=== PATIENT | male | born 1965 | race Caucasian/White ===

== ENCOUNTER 2023-06-07 18:43 | Emergency (ER) | payer BC ==
[~2023-06-07] VITALS: Ht 177.8 cm; Wt 98.9 kg
[~2023-06-07 18:43] MED LIST: BENA-6 PO; ESOM40CA PO
[2023-06-07 19:08] VITALS: BP_SYST 136; PULSE 63; RESP 16; TEMP 95; O2SAT 95
[2023-06-07] MEDS ORDERED: BACITRACIN 1 GM OINT TP ONE (20:45)
[2023-06-07 21:07] LABS: BASOPHILS % (AUTO) 0.4 % (0.0-2.0); EOSINOPHILS # (AUTO) 0.4 K/uL (0.0-0.4); EOSINOPHILS % (AUTO) 4.5 % (0.0-4.0); HEMATOCRIT 42.6 % (36-54); LYMPHOCYTES # (AUTO) 2.6 K/uL (1.0-5.5); LYMPHOCYTES % (AUTO) 28.6 % (20.5-51.5); MEAN CORPUSCULAR HEMOGLOBIN 28 pg (27-31); MEAN CORPUSCULAR HGB CONC 33 % (32-36); MEAN CORPUSCULAR VOLUME 85 fL (79.0-98.0); MONOCYTES # (AUTO) 0.9 K/uL (0.0-1.0); MONOCYTES % (AUTO) 9.9 % (1.7-9.3); NEUTROPHILS # (AUTO) 5.1 K/uL (1.8-7.7); NEUTROPHILS % (AUTO) 56.6 % (40.0-70.0); PLATELET COUNT (AUTO) 269 K/uL (130-430); RED BLOOD CELL COUNT(AUTO) 4.99 MIL/uL (4.2-6.2); RED CELL DISTRIBUTION WIDTH 14.1 % (9.0-15.0); WHITE BLOOD COUNT (AUTO) 8.9 K/uL (4.8-10.8)
[2023-06-07 21:18] LABS: CALCIUM 8.4 mg/dL (8.4-11.0); CREATININE 0.86 mg/dL (0.55-1.30); POTASSIUM 3.5 mmol/L (3.5-5.1)
[2023-06-07 21:23] LABS: ALBUMIN 3.4 g/dL (3.4-4.8); TOTAL BILIRUBIN 0.4 mg/dL (0.0-1.0); TOTAL PROTEIN, SERUM 6.9 g/dL (6.4-8.3)
[2023-06-07] MEDS ORDERED: HYDR-3917 PO ×2 (22:18→22:37)
[2023-06-07 22:41] VITALS: BP_SYST 132; PULSE 62; RESP 18; TEMP 95; O2SAT 98
== END 2023-06-07 22:41 | disposition home or self-care (01) ==
LOC: SED 18:43
DX: S13.4XXA Sprain of ligaments of cervical spine, initial encounter (principal); S43.401A Unspecified sprain of right shoulder joint, initial encounter; S09.90XA Unspecified injury of head, initial encounter; E11.9 Type 2 diabetes mellitus without complications; I10 Essential (primary) hypertension; Z79.899 Other long term (current) drug therapy; W11.XXXA Fall on and from ladder, initial encounter; Y93.89 Activity, other specified; Y92.89 Other specified places as the place of occurrence of the external cause; Y99.8 Other external cause status
CPT/HCPCS: 36415; 70450-TC; 71046-TC; 72040-TC; 72110; 72125-TC; 73000-TC; 73030; 73090; 73502; 76376; 80053; 85025; 99284